=== PATIENT | female | born 1980 | race Caucasian/White ===

== ENCOUNTER → 2016-06-02 | Outpatient (CLI) | payer BC ==
[~2016-06-02] MED LIST: PRENTAB26 PO
== END | disposition home or self-care (01) ==
LOC: C.LABSPEC 11:08
PROVIDERS: ATTEND Obstetrics & Gynecology
DX: O09.523 Supervision of elderly multigravida, third trimester (principal)

== ENCOUNTER 2016-06-24 14:47 | Outpatient (CLI) | payer BC ==
[~2016-06-24] VITALS: Ht 170.2 cm; Wt 91.8 kg
[2016-06-24 15:14] VITALS: Ht 170.2 cm; Wt 91.8 kg
[2016-06-24 15:36] LABS: BASO % 0.2 %; BASO ABS # 0.02 K/uL (0-0.2); COMPLETE YES; EOS % 0.7 %; HEMATOCRIT 36.1 % (37-47); IG% 0.5 %; LYMPH % 17.9 %; LYMPH ABS # 1.86 K/uL (1.2-3.4); MEAN CELL VOLUME 91.2 fL (80-100); MEAN CORPUSCULAR HEMOGLOBIN 32.6 pg (25-34); MEAN CORPUSCULAR HGB CONC 35.7 g/dl (32-36); MEAN PLATELET VOLUME 11.3 fL (7.4-10.4); NEUT % 72.7 %; PLATELET COUNT 202 K/uL (130-400); RED BLOOD COUNT 3.96 M/uL (4.2-5.4)
[2016-06-24] MEDS ORDERED: PRENTAB26 PO (15:52)
[2016-06-24 16:01] LABS: BUN/CREATININE RATIO 8.1 (10-20); CALCIUM 8.5 mg/dl (8.5-10.1); CREATININE 0.59 mg/dl (0.60-1.20); POTASSIUM 3.6 mmol/L (3.5-5.1)
[2016-06-24 16:03] LABS: ALB/GLOB RATIO 0.6 (0.9-2)
== END 2016-06-24 19:06 | disposition home or self-care (01) ==
LOC: C.OPB 14:47 → C.LD 14:52 → C.OPB 19:06
PROVIDERS: ATTEND Obstetrics & Gynecology
DX: O99.89 Other specified diseases and conditions complicating pregnancy, childbirth and the puerperium (principal); R03.0 Elevated blood-pressure reading, without diagnosis of hypertension; O09.513 Supervision of elderly primigravida, third trimester; Z3A.39 39 weeks gestation of pregnancy

== ENCOUNTER → 2016-06-24 | Outpatient (CLI) | payer BC ==
--- NOTE | 2016-06-24 13:33 | DIAGNOSTIC IMAGING REPORT ---
LIMITED (US) CLINICAL HISTORY: . In vitro fertilization. COMPARISON STUDY: No previous studies for comparison. FINDINGS: A limited study was performed. A single alive fetus in cephalic presentation was identified. The heart rate is 156. The anatomic fluid index was 18.1 cm. The placenta was posterior and fundal. A anatomic study was not performed. IMPRESSION: Single live fetus in cephalic presentation. The anatomic fluid is 18.1 cm. Electronically signed by: Beni Grossman M.D. 06/24/2016 1:32 PM Dictated Date/Time: 06/24/2016 1:30 PM
== END | disposition home or self-care (01) ==
LOC: C.ULTR 12:58
PROVIDERS: ATTEND Obstetrics & Gynecology
DX: O09.819 Supervision of pregnancy resulting from assisted reproductive technology, unspecified trimester (principal)

== ENCOUNTER 2016-06-26 04:16 | Outpatient (CLI) | payer BC ==
[~2016-06-26] VITALS: Ht 170.2 cm; Wt 91.8 kg
[2016-06-26 05:09] VITALS: Ht 170.2 cm; Wt 91.8 kg
--- NOTE | 2016-07-01 07:08 | EDITING REQUIRED CODING QUERY ---
DIAGNOSIS NEEDED To promote full compliance with coding requirements relating to patient care, physician participation is requested in all cases of remote medical coder uncertainty. Please assist us with the question(s) below: Coding Question: The patient received care in labor and delivery on 06/26/16 as noted within the record. Please document the diagnosis that is being addressed by the medication/treatment. Provider Response: DIAGNOSIS: Uterine contractions Thank you for your assistance, Radha Cabello - Video Control Engineer
== END 2016-06-26 09:35 | disposition home or self-care (01) ==
LOC: C.OPB 04:16 → C.LD 04:18 → C.OPB 09:35 → EDSTATUS 06-28 04:12
PROVIDERS: ATTEND Obstetrics & Gynecology
DX: O62.9 Abnormality of forces of labor, unspecified (principal); Z3A.39 39 weeks gestation of pregnancy

== ENCOUNTER 2016-06-28 04:57 | Inpatient (IN) | payer BC ==
[~2016-06-28] VITALS: Ht 170.2 cm; Wt 90.0 kg
[2016-06-28] MEDS ORDERED: LACTATED RINGER'S 1000ML 1,000 ML IV SCH (05:27)
[2016-06-28] MEDS ORDERED: LACTATED RINGER'S 1000ML 1,000 ML IV PRN (05:27)
[2016-06-28 05:43] VITALS: Ht 170.2 cm; Wt 90.0 kg
[2016-06-28 06:14] LABS: HEMATOCRIT 36.2 % (37-47); MEAN CELL VOLUME 90.7 fL (80-100); MEAN CORPUSCULAR HEMOGLOBIN 32.1 pg (25-34); MEAN CORPUSCULAR HGB CONC 35.4 g/dl (32-36); MEAN PLATELET VOLUME 10.8 fL (7.4-10.4); PLATELET COUNT 214 K/uL (130-400); RED BLOOD COUNT 3.99 M/uL (4.2-5.4)
[2016-06-28] MEDS ORDERED: FENTANYL 2MCG/ML ROPIV 1.25MG/ML 100ML BAG EPI ONE (09:25)
[2016-06-28] MEDS ORDERED: FENTANYL CITRATE INJ 50 MCG/1 ML 2 ML VIAL ONE (09:25)
[2016-06-28] MEDS ORDERED: BUPIVACAINE 0.25% 30 ML VIAL ONE (09:25)
[2016-06-28] MEDS ORDERED: EpHEDrine SULFATE INJ 50 MG/ML AMP ONE (09:25)
[2016-06-28] MEDS ORDERED: NALOXONE HCL INJ 1 MG in SODIUM CHLORIDE 0.9% 1000ML 1,000 ML IV PRN (09:39)
[2016-06-28] MEDS ORDERED: LACTATED RINGER'S 1000ML 500 ML IV PRN ×2 (09:39→11:02)
[2016-06-28] MEDS ORDERED: EpHEDrine SULFATE INJ 50 MG/ML AMP IV PRN (09:45)
[2016-06-28] MEDS ORDERED: NALBUPHINE HCL INJ 10 MG/ML AMP IV PRN (09:45)
[2016-06-28] MEDS ORDERED: NALOXONE HCL INJ 0.4 MG/1 ML VIAL/CARP IV PRN (09:45)
[2016-06-28] MEDS ORDERED: ONDANSETRON INJ 2 MG/ML 2 ML VIAL IV PRN (09:45)
[2016-06-28] MEDS ORDERED: FENTANYL 2MCG/ML ROPIV 1.25MG/ML 100ML BAG EPI PRN (09:45)
[2016-06-28] MEDS ORDERED: DiphenhydrAMINE HCL 50 MG/ML VIAL IV PRN (09:45)
[2016-06-28] MEDS ORDERED: OXYTOCIN 30 UNITS/500ML NSS IV PRN ×2 (11:15→19:00)
[2016-06-28] MEDS ORDERED: ACETAMINOPHEN/CODEINE 300/30MG TAB PO PRN ×2 (19:00)
[2016-06-28] MEDS ORDERED: SUPERCREAM 0.870 % 15GM JAR EXT PRN (19:00)
[2016-06-28] MEDS ORDERED: BENZOCAINE 20% AER SPR 82.5 GM CAN EXT PRN (19:00)
[2016-06-28] MEDS ORDERED: ACETAMINOPHEN 325 MG TAB PO PRN (19:00)
[2016-06-28] MEDS ORDERED: DIPHTHERIA/TETANUS/PERTUSSIS 0.5 ML SYR/VIAL IM. ONE (19:00)
[2016-06-28] MEDS ORDERED: LANOLIN OINT EXT PRN ×2 (19:00)
[2016-06-28] MEDS ORDERED: HYDROCORTISONE ACETATE 25 MG SUPP PR PRN (19:00)
--- NOTE | 2016-06-28 19:06 | DELIVERY SUMMARY ---
DATE OF OPERATION: 06/28/2016 The patient dilated to complete and pushed to deliver a viable male . Apgars 8 and 9 via over partial third degree perineal laceration. Nose and mouth were bulb suctioned at the perineum. Shoulders and body delivered with ease. The infant was vigorous and crying at . Delayed cord clamping performed, per the patient's desire. After approximately 1 minute and 30 seconds, cord doubly clamped and cut and infant to maternal abdomen. Placenta delivered spontaneously intact, 3-vessel cord. Hemostasis achieved with dilute Pitocin and uterine massage. Cervix and Sulci intact. Assessment of laceration with finding of partial third degree as noted, so the anal capsule was reinforced with interrupted sutures of 3-0 Vicryl. The laceration was further repaired in the routine fashion using 3-0 Vicryl. The rectal exam was performed with no sutures in the rectum. The EBL was 300 mL. Mother and baby stable in recovery. I attest to the content of the Intraoperative Record and any orders documented therein. Any exceptions are noted below. MTDD
[2016-06-28] MEDS: OXYTOCIN INJ 20 UNITS in LACTATED RINGER'S 1000ML 1,000 ML IV SCH (19:53)
[2016-06-28] MEDS: DOCUSATE SODIUM 100 MG CAP PO SCH (20:00)
[2016-06-28 21:15] VITALS: BP 121/74; PULSE 68; TEMP 36.8; O2SAT 98
[2016-06-28] MEDS: IBUPROFEN 600 MG TAB PO PRN (21:15)
[2016-06-28 23:45] VITALS: BP 128/80; PULSE 73; TEMP 36.8; O2SAT 98
[2016-06-29] MEDS: IBUPROFEN 600 MG TAB PO PRN ×4 (02:21→23:21)
[2016-06-29] MEDS: OXYTOCIN INJ 20 UNITS in LACTATED RINGER'S 1000ML 1,000 ML IV SCH (04:11)
[2016-06-29 05:05] VITALS: BP 107/69; PULSE 73; TEMP 36.5; O2SAT 97
--- NOTE | 2016-06-29 07:18 | Anesthesia Procedure Note ---
Anesthesia Epidural Removal Nt Date & Time Jun 29, 2016 at 07:19 Vital Signs Pain Intensity: 2.0 Vital Signs Past 12 Hours Date Time Temp Pulse Resp B/P Pulse Ox O2 Delivery O2 Flow Rate FiO2 06/29/16 05:05 36.5 73 20 107/69 97 Room Air 06/28/16 23:45 98 Room Air 06/28/16 23:45 36.8 73 20 128/80 98 Room Air 06/28/16 21:15 36.8 68 20 121/74 98 Room Air 06/28/16 21:15 98 Room Air Notes Mental Status: alert / awake / arousable, participated in evaluation Nausea / Vomiting: adequately controlled Pain: adequately controlled Airway Patency, RR, SpO2: stable & adequate BP & HR: stable & adequate Hydration State: stable & adequate Neuraxial Anesthesia: was administered Anesthetic Complications: no major complications apparent, pt satisfied with anesthetic care Epidural: removed without complications, with tip intact
[2016-06-29 07:54] VITALS: BP 103/65; PULSE 76; TEMP 36.8
[2016-06-29] MEDS: DOCUSATE SODIUM 100 MG CAP PO SCH ×2 (08:27→19:39)
--- NOTE | 2016-06-29 09:48 | Progress Note ---
Subjective Jun 29, 2016. Subjective conversation w/ patient, physical exam Ambulation: ambulating normally Voiding: no voiding problems Diet Tolerance: Regular Diet Lochia: Small Feeding Type: Breast Feeding Pain: no pain issues Objective Vital Signs Date Time Temp Pulse Resp B/P Pulse Ox O2 Delivery O2 Flow Rate FiO2 06/29/16 07:54 36.8 76 20 103/65 06/29/16 05:05 36.5 73 20 107/69 97 Room Air 06/28/16 23:45 98 Room Air 06/28/16 23:45 36.8 73 20 128/80 98 Room Air 06/28/16 21:15 36.8 68 20 121/74 98 Room Air 06/28/16 21:15 98 Room Air Physical Exam General Appearance: WELL-APPEARING, WD/WN, NO APPARENT DISTRESS Respiratory/Chest: lungs clear Cardiovascular: regular rate, rhythm Abdomen: non tender, soft Fundus: Firm, Relation to Umbilicus (2 down) Extremities: non-tender Assessment and Plan Post- Day#: 1 Continue Routine Care: stable, routine care.
[2016-06-29 13:00] VITALS: BP 123/84; PULSE 84; TEMP 36.8
[2016-06-29 15:30] VITALS: BP 127/85; PULSE 78; TEMP 36.8
[2016-06-29 23:21] VITALS: BP 133/87; PULSE 97; TEMP 36.8
--- NOTE | 2016-06-30 07:41 | Progress Note ---
Subjective Jun 30, 2016. Subjective conversation w/ patient Ambulation: ambulating normally Voiding: no voiding problems Passing Gas: Yes Diet Tolerance: Regular Diet Lochia: Small Feeding Type: Breast Feeding Review of Systems Constitutional: No fever Respiratory: No cough, No shortness of breath Cardiac: No chest pain, No palpitations Abdomen: No nausea, No pain, No vomiting Objective Vital Signs Date Time Temp Pulse Resp B/P Pulse Ox O2 Delivery O2 Flow Rate FiO2 06/29/16 23:21 Room Air 06/29/16 23:21 36.8 97 20 133/87 Room Air 06/29/16 15:30 36.8 78 16 127/85 Room Air 06/29/16 15:30 Room Air 06/29/16 13:00 36.8 84 20 123/84 06/29/16 07:54 36.8 76 20 103/65 Physical Exam General Appearance: WELL-APPEARING, NO APPARENT DISTRESS Respiratory/Chest: lungs clear, normal breath sounds Cardiovascular: regular rate, rhythm, no murmur Abdomen: non tender, soft Fundus: Firm, Non-Tender, Relation to Umbilicus (At the umbilicus and to the right of the umbilicus) Extremities: non-tender, no calf tenderness Assessment and Plan Post- Day#: 2 Continue Routine Care: A/P: s/p Day 2 - Pt doing well clinically - A+, GBS-, Rubella immune - Encourage ambulation, and encourage breast feeding - Patient to be discharged today - Continue routine post care Resident Physician Supervision Note: I interviewed and examined the patient. Discussed with Dr. Blackmon and agree with findings and plan as documented in the note. Any exceptions or clarifications are listed here: did not discuss pt with resident but read the note. she is well. ready for discharge. no problems with voiding, ambulating, kimberly regular diet. exam with ff at 2 down. reviewed instructions. f/u 6 wks. Documented By: Carolin Gee
[2016-06-30] MEDS: DOCUSATE SODIUM 100 MG CAP PO SCH (07:57)
[2016-06-30 08:00] VITALS: BP 115/85; PULSE 78; TEMP 36.7; O2SAT 99
--- NOTE | 2016-06-30 08:38 | Discharge Instructions ---
Discharge Instructions Admission Reason for Admission: Spontaneous Onset Of Labor Discharge Discharge Diagnosis / Problem: s/p delivery Discharge Goals Goal(s): Routine recovery after delivery Medications Continue Dispensed Medications: supercream, dermaplast, tucks, lansinoh Activity Recommendations Activity Limitations: as noted below . Instructions / Follow-Up Instructions / Follow-Up ACTIVITY RECOMMENDATIONS: * Gradual return to full activity over the next 2-3 weeks. * No lifting - nothing heavier than baby over the next 2-3 weeks. * Do not engage in vigorous exercise, sexual activity or sports until cleared by your physician. * Do not drive or operate any motorized equipment until cleared by your physician. * You may shower/bathe daily. MEDICATIONS: For discomfort or pain, you may use Acetaminophen (Tylenol), Ibuprofen (Advil), or Naproxen (Aleve) following the package directions. For constipation you may use Colace following the package directions. BREAST CARE: If you are not breast feeding: * Wear a supportive bra 24 hours a day for one to two weeks. * Avoid stimulating your breasts and nipples as much as possible during the first few weeks after delivery. * When taking a shower, have the warm water hit your back, not breasts. * When your breasts feel full, apply ice packs. Usually three to four times a day helps ease the discomfort. * Take a mild pain medication (Tylenol / Motrin) when you are uncomfortable. If breast feeding: * Use breast milk to lubricate nipples. Lansinoh cream may be used for sore nipples. You do not need to remove cream prior to breast feeding. If using a different brand of cream, check the label for directions regarding removal of cream prior to nursing. * Wear a supportive bra. * If having problems with breasts or breast feeding, call a vocational rehabilitation consultant or your health care provider. EPISIOTOMY CARE: After delivery, if you have an episiotomy (stitches), the following steps will ease discomfort and aid healing. * For the first 24 hours after delivery, place ice packs next to your episiotomy to help reduce swelling. * After the first 24 hour-period, sitz baths, either portable or in the tub, are suggested. A shower with a shower arm sprayed over the episiotomy may be comforting. * Karissa care should be done after each voiding and bowel movement. Squirt warm water from a plastic bottle over the perineum (region of the body between the anus and urinary opening) and pat dry. * Use Dermoplast to ease discomfort. Shake container. Moriarty directly over the episiotomy. Place a Tucks on a clean sanitary pad next to your episiotomy. SPECIAL CARE INSTRUCTIONS: When you are discharged from the hospital, it is important for you to follow the instructions listed below: * During the first week at home, you should be able to care for yourself and your baby. In addition, the usual light household activities are encouraged. * Limit your activities to the way you feel. Do not try to clean the house or move furniture. Be sensible. * If you actively engage in sports and have done so up until the time of your delivery, you may resume these activities as soon as you feel able. This may take up to one month or even longer. Use good judgment. * Continue to take your vitamins for at least six weeks after the of your baby. * Your diet need not be limited unless you were on a special diet before your delivery. Breast-feeding mothers need around 2500 calories per day and at least 64-80 ounces of fluid per day (8 to 10 glasses). * You should eat foods from the four major food groups. Crash diets or fad diets are to be avoided. Eating lean meats, fresh fruits and vegetables, low-fat dairy products, high fiber foods and a regular exercise program, will help you get back to your pre- weight without putting your health at risk. * Constipation is sometimes a problem after delivery. Take a mild laxative as needed. If breast feeding, Milk of Magnesia is acceptable to use. You may use a suppository or Fleets enema if no episiotomy. * A daily shower or tub bath is suggested. Be sure to thoroughly and gently dry the perineum. * A bloody vaginal discharge will usually continue until around four weeks post . A small amount of bleeding may continue for as long as six weeks. Vaginal discharge changes from the bright red bleeding after delivery to pink then brownish and finally yellowish-pink before becoming white and disappearing. * Bleeding may increase with activity. Your first period may come in 4-8 weeks. If you are breast feeding, your period may be delayed even longer. * [place] (sex) can begin whenever both you and your partner feel comfortable and do not have any form of genital infection. It is recommended that you wait at least six weeks for internal and external healing to occur. If you have questions, please talk to your health care practitioner. A condom should be used to prevent infection and . * Foreplay, gentle intercourse and lubrication is very important the first several times to prevent pain. A water-based lubricant such as K-Y jelly or Astroglide may be used. * If you have RH negative blood and your baby is RH positive, you will receive RHOGAM by injection prior to discharge. The nurse will give you a card to keep with you that has the date and place that you received RHOGAM after delivery. * During your care, you had a Rubella screen done to check for the presence of rubella antibodies in your blood. If your test was negative, you will receive a Rubella vaccine prior to discharge. This vaccine may cause a fever, soreness at the injection site and flu-like symptoms. If these symptoms persist, notify your health care practitioner. is not advised for one month after a Rubella vaccine. * Verbalizes understanding of car seat law as reviewed with patient nursing. * Car Seat hand-out given and reviewed with patient by nursing. * Shaken baby information reviewed with patient by nursing. Call you doctor if: * Heavy bleeding (saturating several pads an hour) or passing clots the size of your fist. * A fever >101 degrees F (38.3 degrees C) on two occasions four hours apart and /or chills. * Unusual pain in the pelvic or vaginal areas. * "Baby Blues" lasting longer than two weeks. If you have any questions or concerns, call your health care practitioner at . FOLLOW UP VISIT: * Please call the office at to schedule a 6 week examination. It is important you keep this appointment. It is important for you to make arrangements for either yearly or twice yearly check-ups thereafter. Current Hospital Diet Patient's current hospital diet: Regular OB Diet Discharge Diet Recommended Diet: Regular Diet Pending Studies Studies pending at discharge: no Medical Emergencies . Who to Call and When: Medical Emergencies: If at any time you feel your situation is an emergency, please call 911 immediately. . Non-Emergent Contact Non-Emergency issues call your: [employer] Call Non-Emergent contact if: you have a fever, your pain is not controlled . . "Provider Documentation" section prepared by Carolin Gee. VTE Core Measure Inpt VTE Proph given/why not?: Treatment not indicated
[2016-06-30 12:51] VITALS: BP_DIAS 85; PULSE 78; TEMP 36.7
== END 2016-06-30 12:56 | disposition home or self-care (01) | DRG 775 ==
LOC: C.OPB 04:57 → C.LD 04:58 → C.OPB 05:30 → C.OBG 21:04
PROVIDERS: ADMIT Obstetrics & Gynecology; ATTEND Obstetrics & Gynecology
PROC: 0DQR0ZZ Repair Anal Sphincter, Open Approach (ICD-10-PCS; principal; 2016-06-28)
PROC: 10E0XZZ Delivery of Products of Conception, External Approach (ICD-10-PCS; principal; 2016-06-28)
DX: O26.893 Other specified pregnancy related conditions, third trimester (principal); O70.20 Third degree perineal laceration during delivery, unspecified; Z37.0 Single live birth; Z3A.40 40 weeks gestation of pregnancy

== ENCOUNTER 2016-07-19 16:26 | Emergency (ER) | payer BC ==
[~2016-07-19] VITALS: Ht 172.7 cm; Wt 83.7 kg
[2016-07-19 16:29] VITALS: TEMP 36.9; Ht 172.7 cm; Wt 83.7 kg
[2016-07-19 17:19] LABS: BASO % 0.7 %; BASO ABS # 0.04 K/uL (0-0.2); COMPLETE YES; EOS % 4.7 %; HEMATOCRIT 35.3 % (37-47); IG% 0.2 %; LYMPH % 35.9 %; LYMPH ABS # 2.16 K/uL (1.2-3.4); MEAN CORPUSCULAR HEMOGLOBIN 31.4 pg (25-34); MEAN CORPUSCULAR HGB CONC 34.6 g/dl (32-36); MEAN PLATELET VOLUME 9.9 fL (7.4-10.4); NEUT % 47.5 %; PLATELET COUNT 311 K/uL (130-400); RED BLOOD COUNT 3.88 M/uL (4.2-5.4); WHITE BLOOD COUNT 6.01 K/uL (4.8-10.8)
--- NOTE | 2016-07-19 18:03 | EMERGENCY ROOM VISIT NOTE ---
History Report prepared by Meaghan: Suleman Corrigan Under the Supervision of: Dr. Joshua Ordoñez D.O. First contact with patient: 16:53 Chief Complaint: ED VAG BLEEDING Stated Complaint: BLEEDING, 101 LOW GRADE FEVER History of Present Illness The patient is a 35 year old female who presents to the Emergency Room with complaints of worsening vaginal bleeding beginning five days prior to arrival. She describes the blood as bright red and currently rates her discomfort as a 3/ 10 in severity. The patient associates a fever of 101 F, vaginal bleeding clots , and vaginal pressure with today's symptoms. She states she is three weeks , in which, she had a 3rd degree partial tear. The patient notes the bleeding had subsided following the delivery but returned five days ago as bright red blood. She states she was laying down today, and when she got up to use the restroom, she passed a clot the size of a grape tomato. The patient notes she called her doctor today, who told her to go to the ED if she was worried. She states she is currently breast feeding her child, and this is her first child. The patient notes she has been taking Advil every four hours to relieve her symptoms. She denies a sorethroat, urinary symptoms, and other complaints at this time. The patient notes she has a followup appointment with her kitchen designer on August 05. Source of History: patient Onset: five days COLORER HIDES AND SKINS Position: other (vagina) Symptom Intensity: 3/10 Quality: other (bleeding) Timing: worsening Modifying Factors (Relieving): ibuprofen Associated Symptoms: + fevers, No sorethroat, No urinary symptoms Note: Associated symptoms: vaginal bleeding clots, vaginal pressure. Review of Systems See HPI for pertinent positives & negatives. A total of 10 systems reviewed and were otherwise negative. Past Medical & Surgical Medical Problems: (1) Gestational [-induced] hypertension without significant proteinuria , third trimester (2) with 39 completed weeks gestation (3) Spontaneous onset of labor Surgical Problems: (1) H/O laparoscopy (2) History of hysteroscopy Family History Diabetes mellitus Heart disease Hypertension Social History Smoking Status: Never Smoker Marital Status: Housing Status: lives with family Occupation Status: employed Current/Historical Medications Scheduled Multivit/Min/Iron/Fol Ac/Pren ( Vitamin), 1 TAB PO DAILY Allergies Coded Allergies: No Known Allergies (Unverified , 06/28/16) Physical Exam Vital Signs Date Time Temp Pulse Resp B/P Pulse Ox O2 Delivery O2 Flow Rate FiO2 07/19/16 16:29 36.9 78 20 145/91 99 Room Air Physical Exam CONSTITUTIONAL/VITAL SIGNS: Reviewed / noted above. GENERAL: Non-toxic in appearance. INTEGUMENTARY: Warm, dry, and [place]. HEAD: Normocephalic. EYES: without scleral icterus or trauma. ENT/OROPHARYNX: clear and moist. LYMPHADENOPATHY/NECK: Is supple without lymphadenopathy or meningismus. RESPIRATORY: Lungs clear and equal. CARDIOVASCULAR: Regular rate and rhythm. GI/ABDOMEN: Soft and nontender. No organomegaly or pulsatile mass. No rebound or guarding. Normal bowel sounds. PELVIC EXAM: Normal pelvic exam. Small amount of bleeding from the cervix. No bleeding from other sites. No evidence for infection. Healing posterior vaginal wall. No cervical motion tenderness or discomfort on exam. EXTREMITIES: Warm and well perfused. BACK: No CVA tenderness. NEUROLOGICAL: Intact without focal deficits. PSYCHIATRIC: normal affect. MUSCULOSKELETAL: Normally developed with good muscle tone. Medical Decision & Procedures Laboratory Results 07/19/16 17:10 Red Blood Count 3.88, Mean Corpuscular Volume 91.0, Mean Corpuscular Hemoglobin 31.4, Mean Corpuscular Hemoglobin Concent 34.6, Mean Platelet Volume 9.9, Neutrophils (%) (Auto) 47.5, Lymphocytes (%) (Auto) 35.9, Monocytes (%) (Auto) 11.0, Eosinophils (%) (Auto) 4.7, Basophils (%) (Auto) 0.7, Neutrophils # (Auto ) 2.86, Lymphocytes # (Auto) 2.16, Monocytes # (Auto) 0.66, Eosinophils # (Auto ) 0.28, Basophils # (Auto) 0.04 Test 07/19/16 17:10 White Blood Count 6.01 K/uL (4.8-10.8) Red Blood Count 3.88 M/uL (4.2-5.4) Hemoglobin 12.2 g/dL (12.0-16.0) Hematocrit 35.3 % (37-47) Mean Corpuscular Volume 91.0 fL (80-100) Mean Corpuscular Hemoglobin 31.4 pg (25-34) Mean Corpuscular Hemoglobin Concent 34.6 g/dl (32-36) Platelet Count 311 K/uL (130-400) Mean Platelet Volume 9.9 fL (7.4-10.4) Neutrophils (%) (Auto) 47.5 % Lymphocytes (%) (Auto) 35.9 % Monocytes (%) (Auto) 11.0 % Eosinophils (%) (Auto) 4.7 % Basophils (%) (Auto) 0.7 % Neutrophils # (Auto) 2.86 K/uL (1.4-6.5) Lymphocytes # (Auto) 2.16 K/uL (1.2-3.4) Monocytes # (Auto) 0.66 K/uL (0.11-0.59) Eosinophils # (Auto) 0.28 K/uL (0-0.5) Basophils # (Auto) 0.04 K/uL (0-0.2) RDW Standard Deviation 40.1 fL (36.4-46.3) RDW Coefficient of Variation 12.1 % (11.5-14.5) Immature Granulocyte % (Auto) 0.2 % Immature Granulocyte # (Auto) 0.01 K/uL (0.00-0.02) Laboratory results as stated above per my review. ED Course 1658: Previous medical records were reviewed. The patient was evaluated in room C4. A complete history and physical examination was performed. Medical Decision Etiologies such as ectopic , dysfunction uterine bleeding, bleeding dyscrasia, trauma, infection, as well as others were entertained. This is a 35-year-old female who presents to the ED with a chief complaint of vaginal bleeding. The patient states that she is 3 weeks . She also states that she took her temperature and it was 101 at home just prior to arrival. She did not have a fever when she got here. She did not take antipyretics. The patient states that she took a nap this afternoon and a clot came out. She was concerned about the clot and came to the ED for evaluation. She has not been able to see her kitchen designer this week. The patient's hemoglobin today is 12.2. It was 12.8 at the time of her delivery. Abdomen is soft and non-tender. A pelvic exam was performed. There is a healing posterior vaginal wall laceration without evidence of infection. There is some mild bleeding from the cervix. No other abnormalities were noted. There is no cervical motion tenderness or pain on the exam. She is felt to be stable for discharge. She was told to call her kitchen designer for follow-up this week. Impression Primary Impression: bleeding Scribe Attestation The scribe's documentation has been prepared under my direction and personally reviewed by me in its entirety. I confirm that the note above accurately reflects all work, treatment, procedures, and medical decision making performed by me. Departure Information Dispostion Home / Self-Care Referrals No Doctor, Assigned (PCP) Patient Instructions My [facility] Additional Instructions Call your kitchen designer on Thursday for follow-up this week. Return for any worsening or new concerns.
[2016-07-19 18:17] VITALS: BP 144/86; PULSE 78; O2SAT 100
== END 2016-07-19 18:18 | disposition home or self-care (01) ==
LOC: C.EDB 16:28 → C.EDC 18:18
DX: O72.1 Other immediate postpartum hemorrhage (principal); Z90.710 Acquired absence of both cervix and uterus; Z83.3 Family history of diabetes mellitus; Z82.49 Family history of ischemic heart disease and other diseases of the circulatory system

== ENCOUNTER → 2016-08-05 | Outpatient (CLI) | payer BC | END | disposition home or self-care (01) | LOC: C.PAPS 09:55 | PROVIDERS: ATTEND Obstetrics & Gynecology | DX: Z12.4 Encounter for screening for malignant neoplasm of cervix (principal) ==